=== PATIENT | male | born 1965 | race Caucasian/White ===

== ENCOUNTER 2018-07-26 09:07 | Day surgery (SDC) | payer OTHER ==
[2018-07-25 12:48] VITALS: BMI 46.1
--- NOTE | 2018-07-26 12:32 | OP ---
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 PROCEDURE PERFORMED: Colonoscopy with snare polypectomy. INDICATION: A 53-year-old man, here for first average risk screening colonoscopy. MEDICATIONS: See Anesthesia record. FINDINGS: After discussion of the risks, benefits, and alternatives of the procedure, informed consent was obtained and witnessed. Pre-endoscopic cardiopulmonary examination was satisfactory. Time-out was performed before sedation was achieved. Sedation was achieved with Anesthesia assistance in the endoscopy unit. Digital rectal exam was performed, which was unremarkable. A Pentax adult colonoscope was inserted into the anus and passed forward to the cecum in the usual fashion. The cecal base was identified by the appendiceal orifice as well as the ileocecal valve. The terminal ileum was not intubated. The colonoscope was then slowly withdrawn in a gradual and circumferential manner with careful examination of the entire colonic mucosa. The quality of the prep was good. In the cecum, there was a sessile polyp, measuring 3 mm in diameter. This was completely removed with cold snare and retrieved for pathology. In the sigmoid colon, there was another sessile polyp, also measuring 3 mm in diameter. This was completely removed with cold snare and retrieved for pathology. The remainder of the colonic mucosa appeared normal. Retroflexion in the rectum was unremarkable. The colonoscope was completely withdrawn and the patient allowed to recover. The patient tolerated the procedure well. There were no immediate postprocedure complications. IMPRESSION: 1. 3-mm cecal polyp, completely removed with cold snare and retrieved for pathology. 2. 3-mm sigmoid colon polyp, completely removed with cold snare and retrieved for pathology. 3. Otherwise normal colonoscopy to the cecum. RECOMMENDATIONS: 1. Follow up pathology on the colon polyps. 2. Repeat colonoscopy interval to be determined based on pathology results. If both polyps are hyperplastic, repeat colonoscopy for screening in 10 years. If one or both polyps are adenomatous, repeat colonoscopy for surveillance in 5 years. We will contact the patient with pathology results. Job ID: [id number]
[2018-07-26] MEDS ORDERED: PROPOFOL 200 MG/20 ML VIAL ONE (13:42)
== END 2018-07-26 12:20 | disposition home or self-care (01) ==
LOC: SDC 09:07
PROVIDERS: ATTEND Internal Medicine
PROC: 0DBH8ZX Excision of Cecum, Via Natural or Artificial Opening Endoscopic, Diagnostic (ICD-10-PCS; principal; 2018-07-26)
PROC: 0DBN8ZX Excision of Sigmoid Colon, Via Natural or Artificial Opening Endoscopic, Diagnostic (ICD-10-PCS; principal; 2018-07-26)
DX: Z12.11 Encounter for screening for malignant neoplasm of colon (principal); D12.0 Benign neoplasm of cecum; K63.5 Polyp of colon; E78.5 Hyperlipidemia, unspecified; I10 Essential (primary) hypertension; G47.30 Sleep apnea, unspecified; F17.290 Nicotine dependence, other tobacco product, uncomplicated; Z98.890 Other specified postprocedural states; Z79.899 Other long term (current) drug therapy
CPT/HCPCS: 88305; J2704